=== PATIENT | female | born 1995 | race Caucasian/White ===

== ENCOUNTER → 2021-11-26 | Outpatient (CLI) | payer OTHER ==
[~2021-11-26] MED LIST: BUPROPION XL150 MG PO; LISINOPRIL20 MG PO; SERTRALINE HCL100 MG PO; TOPIRAMATE25 MG PO
[2021-11-26 09:38] LABS: RED BLOOD COUNT 4.77 M/UL (4.00-5.10); WHITE BLOOD COUNT 8.9 K/UL (4.5-11.0)
[2021-11-26 10:01] LABS: BUN/CREATININE RATIO 19 (0-10)
== END ==
LOC: OPSV2 07:58
PROVIDERS: Obstetrics & Gynecology
DX: Z01.812 Encounter for preprocedural laboratory examination (principal); R10.2 Pelvic and perineal pain
CPT/HCPCS: 36415; 80053; 81001; 85025

== ENCOUNTER → 2021-12-05 | Day surgery (SDC) | payer OTHER ==
[~2021-12-05] MED LIST changes: +IBUPROFEN600 MG PO; +PERCOCET 5-3251 EACH PO
== END | disposition home or self-care (01) ==
LOC: OR 12:08
DX: N73.6 Female pelvic peritoneal adhesions (postinfective) (principal); I10 Essential (primary) hypertension; F17.290 Nicotine dependence, other tobacco product, uncomplicated; Z98.51 Tubal ligation status; Z88.0 Allergy status to penicillin
CPT/HCPCS: 84703; J1100; J1885; J2001; J2250; J2405; J2704; J2795; J3010